=== PATIENT | female | born 1995 | race American Indian/Alaskan Native ===

== ENCOUNTER 2017-05-31 13:43 | Emergency (ER) | payer MEDICAID ==
[2017-05-31 15:09] LABS: Basophils % (Auto) 1.2 % (0.0-1.8); Eosinophils % (Auto) 1.9 % (0.0-4.3); Hematocrit 40.8 % (30.3-42.9); Hemoglobin 13.4 gm/dl (10.1-14.3); Mean Corpuscular HGB Conc 33 % (30-34); Mean Corpuscular Hemoglobin 28 pg (28-32); Mean Corpuscular Volume 85 fl (79-97); Platelet Count 307 K/mm3 (140-440); Red Blood Count 4.81 M/mm3 (3.65-5.03); Red Cell Distribution Width 13.5 % (13.2-15.2); White Blood Count 3.3 K/mm3 (4.5-11.0)
[2017-05-31 15:11] LABS: Alanine Aminotransferase 10 units/L (7-56); Albumin 4.1 g/dL (3.9-5); Albumin/Globulin Ratio 1.3 %; Alkaline Phosphatase 59 units/L (35-129); Anion Gap 17 mmol/L; BUN/Creatinine Ratio 12.85; Blood Urea Nitrogen 9 mg/dL (7-17); Calcium 8.9 mg/dL (8.4-10.2); Carbon Dioxide 25 mmol/L (22-30); Glucose 92 mg/dL (65-100); Lipase 17 units/L (13-60); Potassium 4.2 mmol/L (3.6-5.0); Sodium 136 mmol/L (137-145); Total Protein 7.2 g/dL (6.3-8.2)
[2017-05-31 16:14] VITALS: BP 143/99
[2017-05-31] MEDS ORDERED: ULTRAM ONE (21:46)
== END 2017-05-31 16:22 | disposition left against medical advice (07) ==
LOC: ED 13:43
DX: I10 Essential (primary) hypertension (principal); Z53.21 Procedure and treatment not carried out due to patient leaving prior to being seen by health care provider
CPT/HCPCS: 36415; 80053; 83690; 84484; 85025; 93005; 93010